=== PATIENT | female | born 1985 | race Caucasian/White ===

== ENCOUNTER → 2017-06-27 | Outpatient (REF) ==
[2017-06-27 18:43] LABS: ALBUMIN 3.8 gm/dL (3.5-5.0); CALCIUM 8.7 mg/dL (8.4-10.2); PHOSPHOROUS 3.9 mg/dL (2.5-4.5)
== END ==
LOC: ZMSC 18:20
PROVIDERS: Otolaryngology
DX: Z01.89 Encounter for other specified special examinations (principal)

== ENCOUNTER → 2017-06-29 | Outpatient (REF) ==
[2017-06-29 06:29] LABS: ALBUMIN 3.1 gm/dL (3.5-5.0); PHOSPHOROUS 3.8 mg/dL (2.5-4.5)
[2017-06-29 15:49] LABS: ALBUMIN 3.5 gm/dL (3.5-5.0); BILIRUBIN,TOTAL 0.3 mg/dL (0.0-1.0); CALCIUM 8.4 mg/dL (8.4-10.2); CREATININE, serum 0.77 mg/dL (0.52-1.25); PHOSPHOROUS 4.9 mg/dL (2.5-4.5); POTASSIUM 4.1 mmol/L (3.4-5.0); TOTAL PROTEIN 6.8 gm/dL (6.4-8.2)
== END ==
LOC: ZMSC 06:20
PROVIDERS: Otolaryngology
DX: Z01.89 Encounter for other specified special examinations (principal)

== ENCOUNTER → 2017-06-30 | Outpatient (REF) ==
[2017-06-30 06:39] LABS: CALCIUM 8.5 mg/dL (8.4-10.2); PHOSPHOROUS 4.4 mg/dL (2.5-4.5)
== END ==
LOC: ZMSC 06:08
PROVIDERS: Otolaryngology
DX: Z01.89 Encounter for other specified special examinations (principal)

== ENCOUNTER 2017-08-01 13:00 | Outpatient (RCR) | payer OTHER ==
[~2017-08-01] VITALS: Ht 162.6 cm; Wt 55.9 kg
[~2017-08-01 13:00] MED LIST: SYNTHROID0.1 MG/TAB PO
[2017-08-01 13:30] VITALS: BP 116/68; PULSE 85; TEMP 98
== END 2017-08-01 14:00 | disposition home or self-care (01) ==
LOC: EUO 13:00
DX: C73 Malignant neoplasm of thyroid gland (principal)
CPT/HCPCS: A9517; J3240

== ENCOUNTER → 2017-08-09 | Outpatient (CLI) | payer OTHER ==
[2017-08-11 15:58] LABS: THYROGLOBULIN AB SCREEN 2.9 IU/mL (<4.0); THYROGLOBULIN TUMOR MARKER 0.6 ng/mL (())
== END ==
LOC: COL.RAD 08:05
PROVIDERS: Otolaryngology
DX: C73 Malignant neoplasm of thyroid gland (principal)